=== PATIENT | male | born 1985 | race Caucasian/White ===

== ENCOUNTER 2016-12-23 13:37 | Emergency (ER) | payer OTHER ==
[2016-12-23 14:23] VITALS: BP 124/87
--- NOTE | 2016-12-23 16:10 | RAD ---
HISTORY: Right wrist pain, trauma COMPARISONS: None VIEWS: 4, Frontal, lateral, oblique, and scaphoid deviation views of the right breast FINDINGS: BONE DENSITY: Normal. BONES: There is a transverse, nondisplaced fracture of the neck of the scaphoid JOINTS: There is no arthropathy. ALIGNMENT: There is no dislocation. SOFT TISSUES: Unremarkable. OTHER FINDINGS: None. IMPRESSION: NONDISPLACED FRACTURE OF THE SCAPHOID
--- NOTE | 2016-12-23 16:10 | RAD ---
HISTORY: Right wrist pain, trauma, right shoulder pain COMPARISONS: None VIEWS: 2, frontal and frontal oblique views of the right clavicle FINDINGS: BONE DENSITY: Normal. BONES: There is no displaced fracture. JOINTS: There is no arthropathy. ALIGNMENT: There is no dislocation. SOFT TISSUES: Unremarkable. OTHER FINDINGS: None. IMPRESSION: NO ACUTE OSSEOUS INJURY. IF SYMPTOMS PERSIST, RECOMMEND REPEAT IMAGING.
--- NOTE | 2016-12-23 16:10 | RAD ---
HISTORY: Right shoulder pain, trauma COMPARISONS: None VIEWS: 3, Frontal internal rotation, external rotation, and outlet views of the right shoulder FINDINGS: BONE DENSITY: Normal. BONES: There is no displaced fracture. JOINTS: There is no arthropathy. ALIGNMENT: There is no dislocation. SOFT TISSUES: Unremarkable. OTHER FINDINGS: None. IMPRESSION: NO ACUTE OSSEOUS INJURY. IF SYMPTOMS PERSIST, RECOMMEND REPEAT IMAGING.
--- NOTE | 2016-12-25 16:16 | UC ---
Silviano Wilson Michael, scribed for Monika Hopper MD on 12/23/16 at 1535 . Minor Trauma HPI - HPI Summary HPI Summary: 31 y/o male comes to [facility] after a skateboarding trauma 2 days ago. The pt reports that he was riding a skateboard down a paved hill when he suddenly fell forward and landed on his right wrist and right shoulder. The shoulder pain is aggravated with movement, and the wrst pain is aggravated with palpation. He also presents multiple abrasions on his right shoulder and wrist, swelling of the right wrist, and paresthesia in the right wrist. The pt denies abd pain and head trauma. Last tetanus immunization is less than 10 years, and the pt will check with his PCP for exact dates. - History of Current Complaint Chief Complaint: UCUpperExtremity Stated Complaint: WRIST INJURY Time Seen by Provider: 12/23/16 14:58 Hx Obtained From: Patient, Medical Records Onset/Duration: Sudden Onset, Still Present Onset Of Pain: Immediate Severity Initially: Moderate Severity Currently: Moderate Pain Intensity: 8 Pain Scale Used: 0-10 Numeric Mechanism Of Injury: Fall From A Standing Position Aggravating Factor(s): Movement, Other: - palpation Alleviating Factor(s): Nothing Associated Signs And Symptoms: Positive: Swelling - right wrist., Other: - paresthesia-right wrist. abrasion right shoulder and right wrist. - Allergies/Home Medications Allergies/Adverse Reactions: Allergies Allergy/AdvReac Type Severity Reaction Status Date / Time No Known Allergies Allergy Verified 05/29/15 22:39 Home Medications: Home Medications Allergy Shots 12/23/16 [History] PMH/Surg Hx/FS Hx/Imm Hx - Additional Past Medical History Additional PMH: ADHD - Surgical History Surgical History: Yes Surgery Procedure, Year, and Place: s/p vasectomy 05/29/15. hx: tonsilectomy, wisdom teeth - Family History Known Family History: Positive: None Family History: no anesthesia reaction - Social History Occupation: Employed Full-time Lives: With Family Alcohol Use: Occasionally Alcohol Amount: approx 2 beers/day Substance Use Type: None Smoking Status (MU): Former Smoker Type: Cigarettes Length of Time of Smoking/Using Tobacco: 3 years Have You Smoked in the Last Year: No When Did the Patient Quit Smoking/Using Tobacco: 2012 - Immunization History Most Recent Influenza Vaccination: 2011 Most Recent Tetanus Shot: 2013 Most Recent Pneumonia Vaccination: none Review of Systems Musculoskeletal: Other: - right shoulder/wrist pain. right wrist swelling Neurological: Paresthesia - right wrist All Other Systems Reviewed And Are Negative: Yes Physical Exam Triage Information Reviewed: Yes Appearance: Well-Nourished Vital Signs: Initial Vital Signs Temp 98.2 F 12/23/16 14:18 Pulse 81 12/23/16 14:18 Resp 18 12/23/16 14:18 BP 124/87 12/23/16 14:18 Pulse Ox 98 12/23/16 14:18 Vital Signs Reviewed: Yes Eye Exam: Normal ENT Exam: Normal Neck exam: Normal Neck: Positive: Other: - no adenopathy appreciated Respiratory Exam: Normal Respiratory: Positive: Chest non-tender, Lungs clear, Normal breath sounds, No respiratory distress, No accessory muscle use, Other: - no dyspnea no tachypnea. normal repiratory rate. Cardiovascular: Positive: RRR, No Murmur, Pulses Normal, Brisk Capillary Refill Abdominal Exam: Normal Abdomen Description: Positive: Nontender, No Organomegaly, Soft Bowel Sounds: Positive: Present Musculoskeletal: Positive: Other: - tenderness over the AC joint. able to straighten elbow. posterior shoulder tenderness. 90 degrees pain starts. sensation to axillary nerves intact. Right distal radius tenderness. Dorsal- Lateral wrist tenderness-bone does not seem particularly tender. extension and medial rotation tenderness Neurological Exam: Normal Neurological: Positive: Other: - nonfocal. grossly intact. Psychological: Positive: Age Appropriate Behavior, Other: - conversing easily Skin Exam: Normal - no visible or reported rash Diagnostics - Radiology R wrist XR Xray Interpretation: Positive (See Comments) - NONDISPLACED FRACTURE OF THE SCAPHOID Radiology Interpretation Completed By: Radiologist R Clavicle XR Xray Interpretation: No Acute Changes - NO ACUTE OSSEOUS INJURY. IF SYMPTOMS PERSIST, RECOMMEND REPEAT IMAGING. Radiology Interpretation Completed By: Radiologist R Shoulder XR Xray Interpretation: No Acute Changes - NO ACUTE OSSEOUS INJURY. IF SYMPTOMS PERSIST, RECOMMEND REPEAT IMAGING. Radiology Interpretation Completed By: Radiologist Minor Trauma Course/Dx - Course Course Of Treatment: Consulted with Dr. Weaver (Orthopedics) at 1630 about patient care and XR results. - Differential Dx/Diagnosis Provider Diagnoses: R shoulder sprain. R scaphoid fx wrist Discharge - Discharge Plan Condition: Stable Disposition: HOME Prescriptions: Naproxen [Naproxen 500 MG TABS] 500 mg PO BID PRN #30 tab PRN Reason: Pain Patient Education Materials: Shoulder Sprain (ED), Scaphoid Fracture (ED) Referrals: Ariel Smith MD [Primary Care Provider] - Sophie Weaver MD [Medical Doctor] - Additional Instructions: Follow up with Dr. Weaver (orthopedic surgery) - call the office Monday to schedule an appointment on Monday. Check with your primary care physician to confirm tetanus immunization status. Seek medical attention sooner for worse or new problems. Immobilization (unless otherwise advised by orthopedic physician) -Wrist splint - all the time -Shoulder sling - most of the time, as needed for comfort The documentation as recorded by the Silviano carrera Michael accurately reflects the service I personally performed and the decisions made by me, Monika Hopper MD.
== END 2016-12-23 17:04 | disposition home or self-care (01) ==
LOC: UCEAST 13:37
DX: S43.401A Unspecified sprain of right shoulder joint, initial encounter (principal); S62.001A Unspecified fracture of navicular [scaphoid] bone of right wrist, initial encounter for closed fracture; Y93.51 Activity, roller skating (inline) and skateboarding; F90.9 Attention-deficit hyperactivity disorder, unspecified type; Z87.891 Personal history of nicotine dependence
CPT/HCPCS: 99213; G0463

== ENCOUNTER → 2016-12-27 08:53 | Day surgery (SDC) | payer OTHER ==
[~2016-12-27 08:53] MED LIST: Bupivacaine 0.5% SDV PF* 30 ML VIAL ONE; Dexamethasone IV* 4 MG/ML 1 ML (4 MG) ONE; Famotidine IV* 10 MG/ML 2 ML (20 mg) ONE; HYDROmorphone* 1 MG/ML 1 ML SYR IV PRN; KETAMINE HCL* 50 MG/ML 10 ML VIAL ONE; Ketorolac INJ* 30 MG/ML 1 ML VIAL ONE; Lidocaine 1% INJ* 10 MG/ML 30 ML SDV ONE; Midazolam* 1 MG/ML 2 ML VIAL (2 MG) ONE; Ondansetron INJ* 2 MG/ML VIAL IV PRN; Propofol* 10 MG/ML 20 ML BTL IV PUSH ONE; Propofol* 500 MG/50 ML BTL ONE; ceFAZolin 2 GM PREMIX(*) 2 GM/50 ML BAG IVPB ONE; fentaNYL* 50 MCG/ML 2 ML VIAL (100 MCG VIAL) IV PRN; fentaNYL* 50 MCG/ML 2 ML VIAL (100 MCG VIAL) ONE
[2016-12-27 11:44] VITALS: BP 133/68
--- NOTE | 2016-12-27 15:03 | RAD ---
INDICATION: Traumatic right scaphoid fracture, operative reduction. COMPARISON: Comparison is made with a prior x-ray study from December 23, 2016. TECHNIQUE: 28 seconds of intermittent fluoroscopic guidance were provided and 2 spot films of the right wrist were obtained in the operating room. FINDINGS: The films demonstrate placement of a surgical screw spanning the nondisplaced fracture of the scaphoid bone. IMPRESSION: INTRAOPERATIVE CONTROL FILMS. CPT II Codes: 6045F
--- NOTE | 2016-12-28 03:00 | OP ---
DATE OF OPERATION: 12/27/16 [facility] DATE OF : 87 SURGEON: Sophie Weaver MD WELT RANDER: RICHARD Abdi ANESTHESIOLOGIST: Waqar Nair MD ANESTHESIA: General. PRE-OP DIAGNOSIS: Right scaphoid fracture. POST-OP DIAGNOSIS: Right scaphoid fracture. OPERATIVE PROCEDURE: Open reduction and internal fixation of right scaphoid. ESTIMATED BLOOD LOSS: Zero. TOURNIQUET TIME: About 30 minutes. INDICATION FOR PROCEDURE: Randal is a 31-year-old male who crashed a skateboard and suffered a fracture of his right scaphoid as nondisplaced. Options of casting and surgical treatment were discussed with the patient. He is opted for open reduction and internal fixation of the right scaphoid. DESCRIPTION OF PROCEDURE: The patient was brought to the operating room, was given a general anesthetic, and placed in the supine position on the operating table with a tourniquet around his right upper arm. Skin of his right upper extremity was prepped and draped in the usual sterile fashion. The incision was infiltrated with 10 cc of Marcaine 0.5% plain. A longitudinal incision was made just ulnar to Berta tubercle at the radiocarpal joint. We dissected bluntly through the subcutaneous tissue. The EPL and fourth compartment tendons were retracted and then the capsule was incised longitudinally exposing the proximal pole of the scaphoid. With wrist flexion, a guidewire from the standard Acutrak set was driven across the fracture fragments and into the distal pole. Its position was checked on the C-arm in the AP and lateral views and found to be satisfactory, measured for 22 mm screw, drilled over the guidewire and then placed the screw. The guidewire was removed and the position of the screw in the AP and lateral view was found to be satisfactory in central and the scaphoid. The wound was irrigated. The wrist capsule was closed with 2-0 Polysorb and then the skin edges were reapproximated with 4-0 nylon suture. The wound was dressed with Xeroform, 4x4, Webril, and a thumb spica splint. The patient tolerated the procedure well and was brought to the recovery room in good condition. [id number]/[facility] #: [id number] [facility]
== END | disposition home or self-care (01) ==
LOC: OREAST 08:53
PROVIDERS: ATTEND Orthopaedic Surgery
DX: S62.024A Nondisplaced fracture of middle third of navicular [scaphoid] bone of right wrist, initial encounter for closed fracture (principal); Z87.891 Personal history of nicotine dependence; J30.1 Allergic rhinitis due to pollen; V09.1XXA Pedestrian injured in unspecified nontraffic accident, initial encounter; Y93.51 Activity, roller skating (inline) and skateboarding; Y92.9 Unspecified place or not applicable
CPT/HCPCS: 76000; C1713; C1769; J0690; J1100; J1885; J2001; J2250; J2704; J3010

== ENCOUNTER 2017-09-06 16:43 | Emergency (ER) | payer OTHER ==
[2017-09-06] MEDS ORDERED: NS 0.9% 1000 ML* 1,000 ML IV ONE (17:06)
[2017-09-06] MEDS ORDERED: Aspirin Low Dose CHEW TAB* 81 MG PO ONE (17:08)
--- NOTE | 2017-09-06 17:35 | RAD ---
HISTORY: Left-sided chest pain COMPARISONS: None VIEWS: 4: Frontal dual-energy and lateral views of the chest. FINDINGS: CARDIOMEDIASTINAL SILHOUETTE: The cardiomediastinal silhouette is normal. IRINEO: The irineo are normal. PLEURA: The costophrenic angles are sharp. No pleural abnormalities are noted. LUNG PARENCHYMA: The lungs are clear. ABDOMEN: The upper abdomen is clear. There is no subphrenic gas. BONES AND SOFT TISSUES: No bone or soft tissue abnormalities are noted. OTHER: None. IMPRESSION: NO ACTIVE CARDIOPULMONARY DISEASE.
[2017-09-06 17:47] LABS: Hematocrit 46 % (42-52); Hemoglobin 16.1 g/dl (14.0-18.0); Mean Corpuscular HGB Conc 35 g/dl (31-36); Mean Corpuscular Hemoglobin 32 pg (27-31); Mean Corpuscular Volume 92 fL (80-94); Mean Platelet Volume 8 um3 (7.4-10.4); Red Blood Count 5.03 10^6/ul (4.0-5.4); Red Cell Distribution Width 13 % (10.5-15); White Blood Count 6.4 10^3/ul (3.5-10.8)
[2017-09-06 18:03] LABS: ALT 15 U/L (7-52); Albumin 4.3 g/dL (3.2-5.2); Alkaline Phosphatase 53 U/L (34-104); Anion Gap 7 mmol/L (2-11); BUN/Creatinine Ratio 15.1 (8-20); Blood Urea Nitrogen 14 mg/dL (6-24); C Reactive Protein < 1.00 mg/L (< 5.00); CO2 Carbon Dioxide 26 mmol/L (22-32); Calcium 9.3 mg/dL (8.6-10.3); Chloride 105 mmol/L (101-111); Creatine Kinase 191 U/L (10-223); EGFR African American 121.9 (>60); EGFR Non-African American 94.8 (>60); Globulin 2.4 g/dL (2-4); Glucose 112 mg/dL (70-100); Lipase 15 U/L (11.0-82.0); Sodium 138 mmol/L (133-145); Total Protein 6.7 g/dL (6.4-8.9)
[2017-09-06 18:29] LABS: TSH (Thyroid Stimulating Horm) 1.07 mcIU/mL (0.34-5.60)
--- NOTE | 2017-09-06 18:44 | ED ---
Lennox Wilson Benjamin, scribed for Simon Gandhi MD on 09/06/17 at 1706 . HPI Chest Pain - HPI Summary HPI Summary: 32yo male c/o constant mid sternal and left anterior CP for a week. Pain is 3/ 10 at its worst. Pt describes the pain is sharp and crampy. 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 Pt called his PCP, was advised to come to ED for evaluation. Pain is more noticeable with deep breath, but activities, position, or local pressure does not aggravate the pain. Reports mild diaphoresis or hot flashes, but no fever, N /V, or SOB. Pt also had a mild common cold a couple weeks ago. - History of Current Complaint Chief Complaint: EDChestPainROMI Time Seen by Provider: 09/06/17 16:51 Hx Obtained From: Patient, Family/Casting Finisher - S/O Onset/Duration: Started Weeks Ago - 1 week, Still Present Timing: Constant Initial Severity: Mild Current Severity: Mild Pain Intensity: 3 Pain Scale Used: 0-10 Numeric Chest Pain Location: Mid Sternal, Left Anterior Chest Pain Radiates: No Character: Sharp/Stabbing - sharp, Other: - cramping Aggravating Factor(s): Deep Breaths Alleviating Factor(s): Nothing Associated Signs and Symptoms: Positive: Diaphoresis. Negative: Shortness of Breath, Fever, Nausea, Abdominal Pain, Vomiting - Allergy/Home Medications Allergies/Adverse Reactions: Allergies Allergy/AdvReac Type Severity Reaction Status Date / Time NKDA Allergy See Comment Uncoded 12/27/16 09:20 PMH/Surg Hx/FS Hx/Imm Hx Sensory History: Denies: Hx Contacts or Glasses, Hx Hearing Aid Opthamlomology History: Denies: Hx Contacts or Glasses Psychiatric History: Reports: Hx Attention Deficit Hyperactivity Disorder - Surgical History Surgery Procedure, Year, and Place: s/p vasectomy 05/29/15. hx: tonsilectomy, wisdom teeth Hx Anesthesia Reactions: No Infectious Disease History: No Infectious Disease History: Denies: Hx Clostridium Difficile, Hx Hepatitis, Hx Human Immunodeficiency Virus (HIV), Hx of Known/Suspected MRSA, Hx Shingles, Hx Tuberculosis, Hx Known/ Suspected VRE, Hx Known/Suspected VRSA, History Other Infectious Disease, Traveled Outside the [place] in Last 30 Days - Family History Known Family History: Negative: Cardiac Disease, Diabetes Family History: no anesthesia reaction - Social History Lives: With Family Alcohol Use: None Alcohol Amount: approx 2 beers/day Substance Use Type: Reports: None Smoking Status (MU): Former Smoker Type: Cigarettes Length of Time of Smoking/Using Tobacco: 3 years Have You Smoked in the Last Year: No Review of Systems Positive: Skin Diaphoresis Eyes: Negative ENT: Negative Positive: Chest Pain Respiratory: Negative Gastrointestinal: Negative Genitourinary: Negative Musculoskeletal: Negative Skin: Negative Neurological: Negative Psychological: Normal All Other Systems Reviewed And Are Negative: Yes Physical Exam - Summary Physical Exam Summary: General: well-appearing, no pain distress Skin: warm, color reflects adequate perfusion, dry Head: normal Eyes: EOMI, KIMBERLYN ENT: normal Neck: supple, nontender Respiratory: CTA, breath sounds present Cardiovascular: RRR Abdomen: soft, nontender Bowel: present Musculoskeletal: normal, strength/ROM intact Neurological: normal, sensory/motor intact, A&O x3 Psychological: affect/mood appropriate Triage Information Reviewed: Yes Vital Signs On Initial Exam: Initial Vitals Temp Pulse Resp BP Pulse Ox 98 F 72 16 153/99 97 09/06/17 16:45 09/06/17 16:45 09/06/17 16:45 09/06/17 16:45 09/06/17 16:45 Vital Signs Reviewed: Yes Diagnostics - Vital Signs Vital Signs Temp Pulse Resp BP Pulse Ox 09/06/17 16:45 98 F 72 16 153/99 97 - Laboratory Lab Results: Lab Results 09/06/17 09/06/17 09/06/17 Range/Units 17:32 17:32 17:32 WBC 6.4 (3.5-10.8) 10^3/ul RBC 5.03 (4.0-5.4) 10^6/ul Hgb 16.1 (14.0-18.0) g/dl Hct 46 (42-52) % MCV 92 (80-94) fL MCH 32 H (27-31) pg MCHC 35 (31-36) g/dl RDW 13 (10.5-15) % Plt Count 167 (150-450) 10^3/ul MPV 8 (7.4-10.4) um3 Neut % (Auto) 63.8 (38-83) % Lymph % (Auto) 25.7 (25-47) % [place] % (Auto) 7.8 (1-9) % Eos % (Auto) 1.9 (0-6) % Baso % (Auto) 0.8 (0-2) % Absolute Neuts (auto) 4.1 (1.5-7.7) 10^3/ul Absolute Lymphs (auto) 1.6 (1.0-4.8) 10^3/ul Absolute Monos (auto) 0.5 (0-0.8) 10^3/ul Absolute Eos (auto) 0.1 (0-0.6) 10^3/ul Absolute Basos (auto) 0 (0-0.2) 10^3/ul Absolute Nucleated RBC 0 10^3/ul Nucleated RBC % 0.1 INR (Anticoag Therapy) (0.77-1.02) D-Dimer, Quantitative (Less Than 230) ng/mL Sodium 138 (133-145) mmol/L Potassium TNP Chloride 105 (101-111) mmol/L Carbon Dioxide 26 (22-32) mmol/L Anion Gap 7 (2-11) mmol/L BUN 14 (6-24) mg/dL Creatinine 0.93 (0.67-1.17) mg/dL Est GFR ( Amer) 121.9 (>60) Est GFR (Non-Af Amer) 94.8 (>60) BUN/Creatinine Ratio 15.1 (8-20) Glucose 112 H (70-100) mg/dL Lactic Acid (0.5-2.0) mmol/L Calcium 9.3 (8.6-10.3) mg/dL Magnesium TNP Total Bilirubin 0.50 (0.2-1.0) mg/dL AST TNP ALT 15 (7-52) U/L Alkaline Phosphatase 53 (34-104) U/L Total Creatine Kinase 191 (10-223) U/L CK-MB (CK-2) 2.3 (0.6-6.3) ng/mL Troponin I 0.00 (<0.04) ng/mL C-Reactive Protein < 1.00 (< 5.00) mg/L B-Natriuretic Peptide 13 ( - 100) pg/mL Total Protein 6.7 (6.4-8.9) g/dL Albumin 4.3 (3.2-5.2) g/dL Globulin 2.4 (2-4) g/dL Albumin/Globulin Ratio 1.8 (1-3) Lipase 15 (11.0-82.0) U/L TSH 1.07 (0.34-5.60) mcIU/mL 09/06/17 09/06/17 Range/Units 17:32 17:32 WBC (3.5-10.8) 10^3/ul RBC (4.0-5.4) 10^6/ul Hgb (14.0-18.0) g/dl Hct (42-52) % MCV (80-94) fL MCH (27-31) pg MCHC (31-36) g/dl RDW (10.5-15) % Plt Count (150-450) 10^3/ul MPV (7.4-10.4) um3 Neut % (Auto) (38-83) % Lymph % (Auto) (25-47) % [place] % (Auto) (1-9) % Eos % (Auto) (0-6) % Baso % (Auto) (0-2) % Absolute Neuts (auto) (1.5-7.7) 10^3/ul Absolute Lymphs (auto) (1.0-4.8) 10^3/ul Absolute Monos (auto) (0-0.8) 10^3/ul Absolute Eos (auto) (0-0.6) 10^3/ul Absolute Basos (auto) (0-0.2) 10^3/ul Absolute Nucleated RBC 10^3/ul Nucleated RBC % INR (Anticoag Therapy) 0.93 (0.77-1.02) D-Dimer, Quantitative < 200 (Less Than 230) ng/mL Sodium (133-145) mmol/L Potassium Chloride (101-111) mmol/L Carbon Dioxide (22-32) mmol/L Anion Gap (2-11) mmol/L BUN (6-24) mg/dL Creatinine (0.67-1.17) mg/dL Est GFR ( Amer) (>60) Est GFR (Non-Af Amer) (>60) BUN/Creatinine Ratio (8-20) Glucose (70-100) mg/dL Lactic Acid 1.4 (0.5-2.0) mmol/L Calcium (8.6-10.3) mg/dL Magnesium Total Bilirubin (0.2-1.0) mg/dL AST ALT (7-52) U/L Alkaline Phosphatase (34-104) U/L Total Creatine Kinase (10-223) U/L CK-MB (CK-2) (0.6-6.3) ng/mL Troponin I (<0.04) ng/mL C-Reactive Protein (< 5.00) mg/L B-Natriuretic Peptide ( - 100) pg/mL Total Protein (6.4-8.9) g/dL Albumin (3.2-5.2) g/dL Globulin (2-4) g/dL Albumin/Globulin Ratio (1-3) Lipase (11.0-82.0) U/L TSH (0.34-5.60) mcIU/mL Result Diagrams: 09/06/17 17:32 09/06/17 17:32 Lab Statement: Any lab studies that have been ordered have been reviewed, and results considered in the medical decision making process. - Radiology CXR Xray Interpretation: No Acute Changes Radiology Interpretation Completed By: Radiologist - Dr. Gandhi has reviewed this radiology report and agrees. - EKG 1712. EKG Rhythm: Sinus Rhythm - 65bpm EKG Interpretation: Mild ST Elevation of early repol. Chest Pain Course/Dx - Course Course Of Treatment: BP noted and advised to follow up with PCP. Allergies noted. Medications reviewed. DISCUSSED RESULTS WITH PATIENT. PAIN IS SPLINTING AND WORSE WITH ARM MOVEMENT. EARLY REPOL ON EKG. NL TROP AND DDIMER. WILL TREAT WITH NSAIDS AND F/U PMD; RETURN IF WORSE. - Diagnoses Provider Diagnoses: Chest pain Discharge - Discharge Plan Condition: Stable Disposition: HOME Patient Education Materials: Chest Pain (ED) Referrals: Ariel Smith MD [Primary Care Provider] - Additional Instructions: FOLLOW UP WITH YOUR DOCTOR. TAKE IBUPROFEN 600MG EVERY 6 HOURS NEEDED IF HELPFUL. RETURN TO THE EMERGENCY DEPARTMENT FOR ANY WORSENING OF YOUR CONDITION; PAIN WORSENS, SHORTNESS OF BREATH, YOU FEEL ILL OR QUESTIONS OR CONCERNS. The documentation as recorded by the Lennox carrera Benjamin accurately reflects the service I personally performed and the decisions made by me, Simon Gandhi MD.
[2017-09-06 19:01] VITALS: BP 136/80
== END 2017-09-06 18:58 | disposition home or self-care (01) ==
LOC: ED 16:43
DX: R07.9 Chest pain, unspecified (principal)
CPT/HCPCS: 36415; 71020; 80053; 82550; 82553; 83605; 83690; 83880; 84443; 84484; 85025; 85379; 85610; 86140; 93005; 96360; 99282

== ENCOUNTER 2017-09-25 10:11 | Emergency (ER) | payer OTHER ==
[2017-09-25 10:39] VITALS: BP 153/92
--- NOTE | 2017-09-25 11:10 | UC ---
Throat Pain/Nasal Ray HPI - HPI Summary HPI Summary: 32 yo Wm c/o B/L pains after 1week resolving URI sx of nasal congestion refractory to nettipot. Nasal d/c is green/yellow and sinus pain is worsening. - History of Current Complaint Chief Complaint: UCGeneralIllness Stated Complaint: NASAL PAIN Time Seen by Provider: 09/25/17 10:37 Hx Obtained From: Patient Onset/Duration: Gradual Onset, Lasting Weeks Severity: Moderate Associated Signs & Symptoms: Positive: Drooling - Allergies/Home Medications Allergies/Adverse Reactions: Allergies Allergy/AdvReac Type Severity Reaction Status Date / Time NKDA Allergy See Comment Uncoded 09/25/17 10:31 PMH/Surg Hx/FS Hx/Imm Hx - Surgical History Surgical History: Yes Surgery Procedure, Year, and Place: s/p vasectomy 05/29/15. hx: tonsilectomy, wisdom teeth - Family History Known Family History: Positive: None Negative: Cardiac Disease, Diabetes Family History: no anesthesia reaction - Social History Alcohol Use: None Alcohol Amount: approx 2 beers/day Substance Use Type: None Smoking Status (MU): Former Smoker Type: Cigarettes Length of Time of Smoking/Using Tobacco: 3 years Have You Smoked in the Last Year: No When Did the Patient Quit Smoking/Using Tobacco: 2011 - Immunization History Most Recent Influenza Vaccination: 2011 Most Recent Tetanus Shot: 2013 Most Recent Pneumonia Vaccination: none Review of Systems Constitutional: Fatigue Skin: Negative Eyes: Negative ENT: Nasal Discharge, Sinus Pain/Tenderness Respiratory: Negative Cardiovascular: Negative Gastrointestinal: Negative Genitourinary: Negative Motor: Negative Neurovascular: Negative Musculoskeletal: Negative Neurological: Negative Psychological: Negative All Other Systems Reviewed And Are Negative: Yes Physical Exam Triage Information Reviewed: Yes Appearance: Ill-Appearing Vital Signs: Initial Vital Signs Temp 36.5 C 09/25/17 10:32 Pulse 69 09/25/17 10:32 Resp 16 09/25/17 10:32 BP 153/92 09/25/17 10:32 Pulse Ox 100 09/25/17 10:32 Vital Signs Reviewed: No Eye Exam: Normal ENT: Positive: Pharyngeal erythema, Nasal drainage, Sinus tenderness. Negative : Tonsillar swelling, Tonsillar exudate Dental Exam: Normal Dental: Negative: Cervical Lymphadenopathy Neck exam: Normal Neck: Positive: Supple, No Lymphadenopathy Respiratory Exam: Normal Respiratory: Positive: Lungs clear Cardiovascular Exam: Normal Abdominal Exam: Normal Musculoskeletal Exam: Normal Neurological Exam: Normal Psychological Exam: Normal Skin Exam: Normal Throat Pain/Nasal Course/Dx - Differential Dx/Diagnosis Provider Diagnoses: Sinus infection Discharge - Discharge Plan Condition: Stable Disposition: HOME Prescriptions: Amoxicillin PO (*) [Amoxicillin 875 MG (*)] 875 mg PO BID 7 Days #14 tab Patient Education Materials: Sinusitis (ED) Referrals: No Primary Care Phys,NOPCP [Primary Care Provider] -
== END 2017-09-25 11:12 | disposition home or self-care (01) ==
LOC: UCEAST 10:11
DX: J32.9 Chronic sinusitis, unspecified (principal); R53.83 Other fatigue; Z87.891 Personal history of nicotine dependence
CPT/HCPCS: 99212; G0463

== ENCOUNTER 2018-09-07 08:16 | Emergency (ER) | payer OTHER ==
[2018-09-07 08:31] VITALS: BP 143/88
--- NOTE | 2018-09-07 09:19 | UC ---
Respiratory Complaint HPI - HPI Summary HPI Summary: 1 week of productive cough, nasal congestion and fatigue. States he has developed left ear pain and ST. Has noticed some blood in his mucus. No shortness of breath or pleuritic pain. No fever or nausea/vomiting. No recent travel. - History of Current Complaint Chief Complaint: UCRespiratory Stated Complaint: SINUS PAIN Time Seen by Provider: 09/07/18 08:58 Hx Obtained From: Patient Onset/Duration: Gradual Onset, Lasting Days, Still Present Timing: Constant Severity Initially: Moderate Severity Currently: Moderate Pain Intensity: 5 Pain Scale Used: 0-10 Numeric Character: Cough: Productive Aggravating Factors: Nothing Alleviating Factors: Nothing Associated Signs And Symptoms: Positive: URI, Nasal Congestion. Negative: Dyspnea, Fever, Pleuritic Chest Pain, Wheezing - Allergies/Home Medications Allergies/Adverse Reactions: Allergies Allergy/AdvReac Type Severity Reaction Status Date / Time NKDA Allergy See Comment Uncoded 09/07/18 08:31 Home Medications: Home Medications Aspirin/Sod Bicarb/Citric Acid [[place] Es Tab Eff] 1 each PO 09/07/18 [ History] PMH/Surg Hx/FS Hx/Imm Hx - Additional Past Medical History Additional PMH: ALLERGIES - Surgical History Surgical History: Yes Surgery Procedure, Year, and Place: s/p vasectomy 05/29/15. hx: tonsilectomy, wisdom teeth - Family History Known Family History: Positive: None Negative: Cardiac Disease, Diabetes Family History: no anesthesia reaction - Social History Alcohol Use: Weekly Alcohol Amount: approx 2 beers/day Substance Use Type: None Smoking Status (MU): Former Smoker Type: Cigarettes Length of Time of Smoking/Using Tobacco: 3 years Have You Smoked in the Last Year: No When Did the Patient Quit Smoking/Using Tobacco: 2011 - Immunization History Most Recent Influenza Vaccination: 2011 Most Recent Tetanus Shot: 2013 Most Recent Pneumonia Vaccination: none Review of Systems All Other Systems Reviewed And Are Negative: Yes Constitutional: Positive: Fatigue ENT: Positive: Sore Throat, Ear Ache, Nasal Discharge Respiratory: Positive: Cough Cardiovascular: Positive: Negative Gastrointestinal: Positive: Negative Physical Exam Triage Information Reviewed: Yes Appearance: Well-Appearing, No Pain Distress, Well-Nourished Vital Signs: Initial Vital Signs Temp 98.1 F 09/07/18 08:26 Pulse 77 09/07/18 08:26 Resp 18 09/07/18 08:26 BP 143/88 09/07/18 08:26 Pulse Ox 97 09/07/18 08:26 Vital Signs Reviewed: Yes Eyes: Positive: Conjunctiva Clear ENT: Positive: Hearing grossly normal, Pharyngeal erythema, Other - RIGHT TM RETRACTED. LEFT TM ERYTHEMATOUS Neck: Positive: Supple, Nontender, No Lymphadenopathy Respiratory Exam: Normal Cardiovascular Exam: Normal Abdomen Description: Positive: Soft Musculoskeletal: Positive: No Edema Neurological: Positive: Alert Psychological: Positive: Age Appropriate Behavior Skin: Negative: Rashes UC Diagnostic Evaluation - Laboratory O2 Sat by Pulse Oximetry: 97 Respiratory Course/Dx - Course Course Of Treatment: PATIENT'S HEMOPTYSIS IS LIKELY RESULT OF AIRWAY INFLAMMATION DUE TO HIS UPPER RESPIRATORY INFECTION. THIS WILL LIKELY RESOLVE HIS CONDITION IMPROVES. DISCUSSED THE OPTION OF CHEST X-RAY TODAY FOR FURTHER EVALUATION HOWEVER PATIENT DECLINES WHICH GIVEN HIS CLINICAL PRESENTATION IS REASONABLE. ADVISED TO FOLLOW-UP WITH HIS PCP IF HIS HEMOPTYSIS DOES NOT RESOLVE. WILL TREAT WITH AMOXICILLIN FOR HIS LEFT OTITIS MEDIA. - Differential Dx/Diagnosis Provider Diagnosis: Left otitis media, Upper respiratory infection, Hemoptysis Discharge - Sign-Out/Discharge Documenting (check all that apply): Patient Departure All imaging exams completed and their final reports reviewed: No Studies - Discharge Plan Condition: Stable Disposition: HOME Prescriptions: Amoxicillin PO (*) [Amoxicillin 500 MG CAP*] 1,000 mg PO Q12H #28 cap Patient Education Materials: Ear Infection (ED), Upper Respiratory Infection ( ED), Hemoptysis (ED) Referrals: Ariel Smith MD [Primary Care Provider] - Additional Instructions: YOU LIKELY HAVE A VIRALLY MEDIATED UPPER RESPIRATORY INFECTION THAT IS CAUSING INFLAMMATION OF YOUR AIRWAYS RESULTING IN A SMALL AMOUNT OF BLOOD IN YOUR SPUTUM. THIS SHOULD RESOLVE YOUR ILLNESS IMPROVES. YOU HAVE DECLINED CHEST X-RAY TODAY WHICH IS REASONABLE HOWEVER IF THE BLOOD IN YOUR SPUTUM DOES NOT RESOLVE YOU WILL NEED FOLLOW-UP WITH YOUR PCP FOR FURTHER EVALUATION. YOU ALSO WERE FOUND TO HAVE A LEFT SIDED EAR INFECTION. TAKE THE ANTIBIOTICS TWICE DAILY FOR THE FULL COURSE. REST, HYDRATE, OTC MEDS NEEDED FOR DISCOMFORT. USE OTC AFRIN FOR NASAL CONGESTION. 2 SPRAYS IN EACH NOSTRIL TWICE DAILY NEEDED. DO NOT USE FOR MORE THAN 3-4 DAYS IN A ROW TO PREVENT DEVELOPING REBOUND CONGESTION. - Billing Disposition and Condition Condition: STABLE Disposition: Home
== END 2018-09-07 09:15 | disposition home or self-care (01) ==
LOC: UCEAST 08:16
DX: H66.92 Otitis media, unspecified, left ear (principal); J06.9 Acute upper respiratory infection, unspecified; R04.2 Hemoptysis; Z87.891 Personal history of nicotine dependence
CPT/HCPCS: 99212; G0463